=== PATIENT | male | born 1950 | race Caucasian/White ===

== ENCOUNTER 2017-12-21 11:47 | Emergency (ER) | payer MEDICARE, OTHER ==
[~2017-12-21] VITALS: Ht 182.9 cm; Wt 114.3 kg
[~2017-12-21 11:47] MED LIST: ASPIR 8181 MG PO; HYDROCODONE-ACE15 ML; LOPRESSOR25 PO; METFORMIN HCL500 MG PO; MOBIC15 MG PO; PLAVIX 75 MG TA75 M1 PO; SIMVASTATIN40 MG PO; TRAMADOL 50 MG50 MG PO; TRAZODONE HCL50 MG PO; TRULICITY1.5 MG/0.5 SUBQ; ZESTORETIC 20-1 EAC3 PO; ZOCOR20 MG PO
[2017-12-21] MEDS ORDERED: NORCO 5-325 TA1 EACH PO (13:13)
[2017-12-21 13:21] VITALS: BP 138/90
== END 2017-12-21 13:22 | disposition home or self-care (01) ==
LOC: M.ERS 11:47
DX: S01.01XA Laceration without foreign body of scalp, initial encounter (principal); S61.216A Laceration without foreign body of right little finger without damage to nail, initial encounter; E11.9 Type 2 diabetes mellitus without complications; E78.5 Hyperlipidemia, unspecified; I10 Essential (primary) hypertension; Z96.652 Presence of left artificial knee joint; W10.9XXA Fall (on) (from) unspecified stairs and steps, initial encounter; Y93.89 Activity, other specified; Y92.89 Other specified places as the place of occurrence of the external cause; Y99.8 Other external cause status

== ENCOUNTER → 2020-07-02 | Outpatient (CLI) | payer MEDICARE, OTHER ==
[~2020-07-02] MED LIST changes: +NORCO 5-325 TA1 EACH PO
== END ==
LOC: M.NUC 07:09
PROVIDERS: ATTEND Nurse Practitioner Adult Health
DX: R68.81 Early satiety (principal); R63.4 Abnormal weight loss

== ENCOUNTER 2020-09-14 13:58 | Emergency (ER) | payer MEDICARE, OTHER ==
[~2020-09-14] VITALS: Ht 188 cm; Wt 104.3 kg
[2020-09-14 14:41] LABS: ABSOLUTE BASOPHILS 0.1 thou/uL (0.0-0.2); ABSOLUTE EOSINOPHILS 0.2 thou/uL (0.0-0.7); ABSOLUTE LYMPHOCYTES 0.8 thou/uL (0.8-5.3); ABSOLUTE MONOCYTES 0.7 thou/uL (0.0-1.2); ABSOLUTE NEUTROPHILS 4.7 thou/uL (1.6-8.1); BASOPHILS 1.3 %; EOSINOPHILS 2.9 %; HEMATOCRIT 34.7 % (42.0-52.0); HEMOGLOBIN 12.2 gm/dL (14.0-18.0); LYMPHOCYTES 12.1 %; MCH 30.8 pg (26.0-34.0); MCHC 35.2 g/dL (28.0-37.0); MCV 87.5 fL (80.0-100.0); MONOCYTES 10.9 %; MPV 6.4 fl. (7.2-11.1); NUCLEATED RBCS 0 /100WBC; PLATELET COUNT* 254 thou/uL (150-400); POLYS 72.8 %; RBC 3.97 mil/uL (4.50-6.00); RDW-CV 13.1 % (10.5-14.5); WBC 6.5 thou/uL (4.0-11.0)
[2020-09-14 14:50] LABS: CALCIUM 8.3 mg/dL (8.5-10.1); CREATININE 1.1 mg/dL (0.6-1.3); POTASSIUM 3.7 mmol/L (3.5-5.1)
[2020-09-14 14:54] LABS: ALBUMIN 3.3 g/dL (3.4-5.0); TOTAL BILIRUBIN 0.7 mg/dL (<0.1-1.0); TOTAL PROTEIN 6.8 g/dL (6.4-8.2)
[2020-09-14 15:04] VITALS: BP 151/70
--- NOTE | 2020-09-16 14:53 | EKG ---
[place] [address] ELECTROCARDIOGRAM REPORT Name: JOSHUA DAVIS Room: [facility]#: [id number] Admission: 09/14/20 Attend Phys: Discharge: 09/14/20 Date of : 52 Date of Service: 09/14/20 1407 Report #: [id number] THIS REPORT FOR: //name// [facility] ED Test Date: 2020-09-14 Test Time: 14:07:46 Pat Name: JOSHUA DAVIS Department: Room: Gender: General Engineer: : 1950 Requested By: Fox Shafer Order Number: [id number] MD: Dominguez Taveras Measurements Intervals Shaw Rate: 84 P: 52 WI: 207 QRS: -34 QRSD: 152 T: 102 QT: 424 QTc: 502 Interpretive Statements Sinus rhythm Left bundle branch block Baseline wander in lead(s) V2 Compared to ECG 12/21/2016 08:37:46 Left bundle-branch block now present First degree AV block no longer present Electronically Signed On 09-16-2020 14:53:24 CDT by Dominguez Taveras [email or web address] <ELECTRONICALLY SIGNED> By: Dominguez Taveras MD, [facility] 09/16/20 1453 1407 1407 Dominguez Taveras MD, [facility] /EPI
== END 2020-09-14 15:05 | disposition home or self-care (01) ==
LOC: M.ERS 13:58
PROVIDERS: Family Medicine
DX: G45.9 Transient cerebral ischemic attack, unspecified (principal); E11.9 Type 2 diabetes mellitus without complications; I10 Essential (primary) hypertension; Z98.890 Other specified postprocedural states